=== PATIENT | female | born 1975 | race Two or more races ===

== ENCOUNTER 2022-06-18 17:56 | Inpatient (IN) | payer MEDICAID ==
[~2022-06-18] VITALS: Ht 165.1 cm; Wt 132.9 kg
[~2022-06-18 17:56] MED LIST: AMLO10TA PO; ASPI-1822 PO; AZIT250T4 PO; BACL10TA4 PO; BISA-28 PO; BRIM5SOL1 OP; CALC667T8 PO; CARV12.5 PO; DORZ10DR11 OP; FLUO0.0210 TP; FURO-570 PO; GABA300C PO; HUM SUBQ; INSU100S22 SC; LIP80 PO; QUET100T PO; VITA1TAB44 PO; VITA400T14 PO; XALOS OP
[2022-06-18 17:59] VITALS: BP 130/66
--- NOTE | 2022-06-18 18:04 | NUR ---
GENERALIZED WEAKNESS WITH ELECTRIC SHOCK LIKE SYMPTOMS BILATERAL ARMS, STATED THIS HAPPENS WHEN HER POTASSIUM IS LOW, GET HD M-W-F, SHUNT ON RIGHT UPPER CHEST, L BELOW AMPUTATION AND RIGHT AMPUTATION.
--- NOTE | 2022-06-18 18:17 | NUR ---
47 yo/f biba from home w c/o body shaking which pt reports occurs when her potassium levels are high and gets shocks to BL arms, +n/v x1 episode, has occured in the past. pt aox4, denies any pain at this time. dialysis shunt to L arm. pmh: dm, chf, renal failure MWF (Completed sunday), L bka, schizo allergies: denies
--- NOTE | 2022-06-18 19:21 | NUR ---
report to jose a ring
--- NOTE | 2022-06-18 19:52 | NUR ---
IV IS INSTRED 22 GAUGE RIGHT HAND
[2022-06-18 19:57] LABS: BASOPHILS # (AUTO) 0.1 K/uL (0.00-0.22); BASOPHILS % (AUTO) 0.9 % (0.0-2.0); EOSINOPHILS # (AUTO) 0.4 K/uL (0-0.4); EOSINOPHILS % (AUTO) 5.1 % (0.0-4.0); HEMATOCRIT 31.1 % (36-48); HEMOGLOBIN 10.2 g/dL (12.0-16.0); LYMPHOCYTES # (AUTO) 2.1 K/uL (2.5-16.5); LYMPHOCYTES % (AUTO) 25.3 % (20.5-51.1); MEAN CORPUSCULAR HEMOGLOBIN 31 pg (27-31); MEAN CORPUSCULAR HGB CONC 33 g/dL (33-37); MEAN CORPUSCULAR VOLUME 95.2 fL (80-94); MONOCYTES # (AUTO) 0.6 K/uL (0.8-1.0); MONOCYTES % (AUTO) 7.6 % (1.7-9.3); NEUTROPHILS % (AUTO) 61.1 % (42.2-75.2); PLATELET COUNT (AUTO) 278 K/uL (140-450); RED BLOOD CELL COUNT(AUTO) 3.27 MIL/uL (4.20-5.40); RED CELL DISTRIBUTION WIDTH 15.1 % (11.6-13.7); WHITE BLOOD COUNT (AUTO) 8.2 K/uL (4.8-10.8)
[2022-06-18 20:16] LABS: ALBUMIN 3.1 g/dL (3.4-5.0); ANION GAP 17.5 (8-16); POTASSIUM 5.5 mmol/L (3.5-5.1); TOTAL BILIRUBIN 0.3 mg/dL (0.0-1.0)
[2022-06-18 21:05] LABS: APPEARANCE,URINE CLEAR (CLEAR); BILIRUBIN,URINE NEGATIVE (NEGATIVE); BLOOD, URINE NEGATIVE (NEGATIVE); COLOR,URINE YELLOW (YELLOW); LEUKOCYTE ESTERASE ,URINE NEGATIVE (NEGATIVE); NITRITE, URINE NEGATIVE (NEGATIVE); PH,URINE 7.5 (5.0-9.0); UGLUCOSE 3+ (NEGATIVE)
--- NOTE | 2022-06-18 23:00 | NUR ---
pt is resting . no acute distress noted
--- NOTE | 2022-06-19 02:20 | NUR ---
pt asking for snack and nurse provided the item
[2022-06-19] MEDS ORDERED: INSULIN LISPRO SLIDING SCALE 100 UNITS/ML VIAL SUBQ PRN (02:25)
[2022-06-19] MEDS ORDERED: HYDR100T49 PO (02:29)
[2022-06-19] MEDS ORDERED: QUET400T PO (02:29)
[2022-06-19] MEDS ORDERED: DEXTROSE 50% 50 ML SYR IVP PRN ×2 (02:55→10:40)
--- NOTE | 2022-06-19 04:41 | NUR ---
Patient will be admitted to care of Florian. Admited to telemerty . Will go to room 113. Belongings list completed. Report to melania
--- NOTE | 2022-06-19 07:20 | NUR ---
RECEIVED REPORT FROM BRIQUETTE MACHINE OPERATOR NURSE FOR CONTINUITY OF CARE. PT STABLE AT THIS TIME.
[2022-06-19 08:00] VITALS: BP 158/75
--- NOTE | 2022-06-19 10:13 | NUR ---
PATIENT HAS BEEN SCREENED AND CATEGORIZED MODERATE NUTRITION RISK. PATIENT WILL BE SEEN WITHIN 3-5 DAYS OF ADMISSION. REVIEWED BY PARVEEN ROQUE RD
[2022-06-19] MEDS ORDERED: bisacodyL 5 MG TABEC PO PRN (10:40)
[2022-06-19] MEDS ORDERED: POTASSIUM CHLORIDE 10 MEQ TABER PO PRN (10:40)
[2022-06-19] MEDS ORDERED: MAG SULF 2000 MG/WATER PREMIX 50 ML IV PRN (10:40)
[2022-06-19] MEDS: INSULIN LANTUS 100 UNITS/ML 10 ML VIAL SUBQ SCH (10:58)
[2022-06-19] MEDS: BLOOD GLUCOSE MONITORING 1 DEV DEV FS SCH ×3 (11:30→21:03)
[2022-06-19 12:00] VITALS: BP 153/61
[2022-06-19] MEDS: CALCIUM ACETATE 667 MG TAB PO SCH ×2 (12:00→16:24)
[2022-06-19] MEDS ORDERED: SODIUM ZIRCONIUM CYCLOSILICATE 10 GM POWD.PACK PO SCH ×2 (12:08→15:30)
[2022-06-19 12:23] LABS: ANION GAP 19.4 (8-16); CARBON DIOXIDE 26.9 mmol/L (21-32); POTASSIUM 5.3 mmol/L (3.5-5.1)
[2022-06-19 12:32] LABS: CREATININE 9.6 mg/dL (0.6-1.3)
[2022-06-19] MEDS: INSULIN LISPRO SLIDING SCALE 100 UNITS/ML VIAL SUBQ PRN ×2 (12:51→21:04)
[2022-06-19] MEDS ORDERED: FLUOCINOLONE ACETONIDE 0.025% TP SCH (13:00)
[2022-06-19] MEDS ORDERED: NON-FORMULARY ITEM (Calcium Acetate 1 TAB) PO SCH (13:00)
[2022-06-19] MEDS: BACLOFEN 10 MG TAB PO SCH ×2 (13:03→16:24)
[2022-06-19 16:00] VITALS: BP 108/60
[2022-06-19] MEDS: FUROSEMIDE 40 MG TAB PO SCH (16:24)
--- NOTE | 2022-06-19 19:36 | NUR ---
ENDORSED PT TO UNIT OPERATOR NURSE FOR CONTINUITY OF CARE. PT STABLE AT THIS TIME.
--- NOTE | 2022-06-19 19:37 | NUR ---
RECEIVED REPORT FROM DAY SHIFT NURSE ALPHONSE FOR CONTINUITY OF CARE. PT SITTING IN BED, TALKING BY HERSELF. RESPIRATIONS EVEN AND UNLABORED ON RA. ON RESIDENT CARE DIRECTOR. DENIES PAIN. PT HAD HD TODAY, PER RN, 3L OUT. LEFT AV SHUNT, INTACT COVERED WITH DRESSING. DR PINEDA, CONSULTED FOR REMOVAL OF RIGHT CHEST TUNNELED CATH. POC DISCUSSED WITH PT AND RICARDO DONATO. CALL LIGHT WITHIN REACH. SAFETY PRECAUTIONS IN PLACE.
[2022-06-19 20:00] VITALS: BP 112/49
--- NOTE | 2022-06-19 20:00 | NUR ---
Patient's Plan of Care was discussed and reviewed with TITO GARDINER:
[2022-06-19] MEDS: carvediloL 12.5 MG TAB PO SCH (20:55)
[2022-06-19] MEDS: QUEtiapine FUMARATE 100 MG TAB PO SCH (20:55)
[2022-06-19] MEDS: LATANOPROST 0.005% OP 2.5 ML BTL OP SCH (21:00)
[2022-06-19] MEDS ORDERED: NON-FORMULARY ITEM (Dorzolamide HCl/Timolol Maleat (Dorzolamide-Timolol Eye Drops) 1 DROP) OP SCH (21:00)
[2022-06-19] MEDS ORDERED: LATANOPROST 0.005% OP 2.5 ML BTL OP SCH (21:00)
[2022-06-19] MEDS ORDERED: NON-FORMULARY ITEM (Brimonidine Tartrate* (Alphagan P 0.15% Opth Soln*) 1 DROP) OP SCH (21:00)
[2022-06-19] MEDS: BRIMONIDINE TARTRATE 0.2% OP 5 ML BTL OP SCH (21:01)
[2022-06-19] MEDS: DORZOLAMIDE 2% OP 10 ML BTL OP SCH (21:02)
[2022-06-19] MEDS: TIMOLOL OP 0.25% 5 ML BTL OP SCH (21:02)
--- NOTE | 2022-06-19 21:02 | NUR ---
ADMINISTERED DUE MEDS. PT TOLERATED WELL.
--- NOTE | 2022-06-19 22:04 | NUR ---
PT REQUESTED MED FOR CONSTIPATION. ADMINISTERED PRN MED.
[2022-06-20] VITALS: BP 119/55
[2022-06-20 04:00] VITALS: BP 115/68
--- NOTE | 2022-06-20 04:08 | NUR ---
V/S TAKEN AND WITHIN NORMAL LIMITS. PT SLEEPING WITH EQUAL CHEST RISE AND FALL. NO DISTRESS NOTED. SAFETY PRECAUTIONS IN PLACE.
[2022-06-20] MEDS: BLOOD GLUCOSE MONITORING 1 DEV DEV FS SCH ×4 (06:35→20:39)
--- NOTE | 2022-06-20 06:35 | NUR ---
BLOOD SUGAR CHECK DONE. NO INSULIN COVERAGE NEEDED.
--- NOTE | 2022-06-20 07:01 | NUR ---
GAVE BEDSIDE REPORT TO RICARDO CUNHA FOR CONTINUITY OF CARE. PT IS STABLE.
[2022-06-20 07:08] LABS: BASOPHILS % (AUTO) 0.5 % (0.0-2.0); EOSINOPHILS # (AUTO) 0.3 K/uL (0-0.4); EOSINOPHILS % (AUTO) 3.7 % (0.0-4.0); HEMATOCRIT 30.5 % (36-48); LYMPHOCYTES # (AUTO) 2.1 K/uL (2.5-16.5); LYMPHOCYTES % (AUTO) 22.9 % (20.5-51.1); MEAN CORPUSCULAR HEMOGLOBIN 31 pg (27-31); MEAN CORPUSCULAR HGB CONC 33 g/dL (33-37); MEAN CORPUSCULAR VOLUME 93.9 fL (80-94); MONOCYTES # (AUTO) 0.8 K/uL (0.8-1.0); MONOCYTES % (AUTO) 8.7 % (1.7-9.3); NEUTROPHILS # (AUTO) 5.9 K/uL (1.8-7.7); NEUTROPHILS % (AUTO) 64.2 % (42.2-75.2); PLATELET COUNT (AUTO) 253 K/uL (140-450); RED BLOOD CELL COUNT(AUTO) 3.25 MIL/uL (4.20-5.40); RED CELL DISTRIBUTION WIDTH 14.8 % (11.6-13.7); WHITE BLOOD COUNT (AUTO) 9.2 K/uL (4.8-10.8)
--- NOTE | 2022-06-20 07:20 | NUR ---
RECEIVED REPORT FROM MEDICAL BILLING REPRESENTATIVE NURSE FOR CONTINUITY OF CARE. PT STABLE AT THIS TIME.
[2022-06-20 07:30] LABS: ANION GAP 18.1 (8-16); CARBON DIOXIDE 27.4 mmol/L (21-32); POTASSIUM 4.5 mmol/L (3.5-5.1)
[2022-06-20 07:33] LABS: CREATININE 8.3 mg/dL (0.6-1.3)
[2022-06-20 08:00] VITALS: BP 169/80
[2022-06-20] MEDS: BACLOFEN 10 MG TAB PO SCH ×3 (08:36→17:00)
[2022-06-20] MEDS: QUEtiapine FUMARATE 100 MG TAB PO SCH ×3 (08:38→23:39)
[2022-06-20] MEDS: VITAMIN D 400 IU TAB PO SCH (08:38)
[2022-06-20] MEDS: GABAPENTIN 300 MG CAP PO SCH (08:38)
[2022-06-20] MEDS: ASPIRIN 81 MG TAB.CHEW PO SCH (08:38)
[2022-06-20] MEDS: amLODIPine 5 MG TAB PO SCH (08:39)
[2022-06-20] MEDS: CALCIUM ACETATE 667 MG TAB PO SCH ×3 (08:39→17:00)
[2022-06-20] MEDS: carvediloL 12.5 MG TAB PO SCH ×3 (08:39→23:39)
[2022-06-20] MEDS: ATORVASTATIN 80 MG TAB PO SCH (08:39)
[2022-06-20] MEDS: FUROSEMIDE 40 MG TAB PO SCH ×2 (08:39→17:00)
[2022-06-20] MEDS: VIT-B COMP/VIT-C/FOLIC ACID 1 TAB PO SCH (08:40)
--- NOTE | 2022-06-20 08:45 | NUR ---
PT ASLEEP BUT WOKE WITH A STERNAL RUB AND CONSTANT SHAKING. MORNING MEDICATION ADMINISTERED. PT SEEMS TO BE VERY DROWSY. WILL WATCH FOR ANY CHANGES.
[2022-06-20] MEDS: INSULIN LANTUS 100 UNITS/ML 10 ML VIAL SUBQ SCH (08:58)
[2022-06-20] MEDS ORDERED: INSULIN GLARGINE HUM REC ANLOG U SCH (09:00)
[2022-06-20] MEDS: BRIMONIDINE TARTRATE 0.2% OP 5 ML BTL OP SCH ×2 (09:00→20:45)
[2022-06-20] MEDS: TIMOLOL OP 0.25% 5 ML BTL OP SCH ×2 (09:00→20:34)
[2022-06-20] MEDS: DORZOLAMIDE 2% OP 10 ML BTL OP SCH ×2 (09:00→20:42)
--- NOTE | 2022-06-20 09:40 | NUR ---
RECEIVED A CALL FROM DR. PINEDA REGARDING SUPPLIES HE WOULD NEED TO REMOVE THE PATIENTS TUNNELED CATHETER THIS AFTERNOON. WROTE DOWN THE SUPPLIES, COLLECTED THEM AND PLACED THEM AT BEDSIDE. I ALSO ORDERED THE MEDICATION THAT WOULD BE NEEDED FOR THE PROCEDURE.
[2022-06-20] MEDS ORDERED: LIDOCAINE 1% 500 MG/ 50 ML VIAL INJ SCH (11:20)
--- NOTE | 2022-06-20 11:35 | NUR ---
JOHNY PLANNING ATTEMPTED TO MEET PT AT BEDSIDE, HOWEVER, PT UNABLE TO STAY AWAKE LONG ENOUGH TO COMPLETE ASSESSMENT. SW TO RETURN WHEN PT IS ALERT AND ORIENTED. SW TO FOLLOW Addendum: 06/21/22 at 1517 by Hiren Person SECOND ATTEMPT MADE TO MEET PT AT BED SIDE TO COMPLETE ASSESSMENT, HOWEVER, PT RECEIVING DIALYSIS AND HEAVILY SLEEPING, UNABLE TO WAKE. OUTREACHED TO PTS EMERGENCY CONTACT [employer], TO GATHER COLLAT INFO HOWEVER, NO ANSWER. SW TO CONTINUE FOLLOWING Addendum: 06/22/22 at 1341 by Hiren Person third attempt: attempted to meet pt at bedside to complete assessment, however pt continues to respond to prompts. pat outreached top pts mother, ascencion. ascencion reports she will be at hospital later this afternoon.
[2022-06-20 12:00] VITALS: BP 137/66
--- NOTE | 2022-06-20 12:00 | NUR ---
WENT IN TO GIVE PATIENT HER NOON MEDICATION AN PT WAS ASLEEP. I WAS ABLE TO WAKE THE PATIENT AFTER A FEW MINUTES OF SAYING HER NAME AND CONSTANT SHAKING. PT TOOK HER MEDICATION AND I TOLD HER HE FOOD WAS THERE.
[2022-06-20] MEDS ORDERED: MORPHINE SULFATE 4 MG/ML SYR IVP SCH (15:10)
--- NOTE | 2022-06-20 15:10 | NUR ---
RECEIVED A CALL FROM DR PINEDA ASKING ABOUT SUPPLIES FOR TUNNELED CATHETER REMOVAL AND VERBALLY ORDERED 4MG MORPHINE TO BE ADMINISTERED NOW. PLACED ORDER AND ADMINISTERED MEDICATION TO THE PATIENT.
--- NOTE | 2022-06-20 15:30 | NUR ---
DR PINEDA ARRIVED TO REMOVE PTS TUNNELED CATHETER. ALL SUPPLIES WERE AT BEDSIDE AND PROCEDURE WENT SMOOTHLY. CATHETER REMOVED.
[2022-06-20 16:00] VITALS: BP 117/62
--- NOTE | 2022-06-20 17:15 | NUR ---
WENT TO ADMINISTER PTS 1700 MEDS AND PT WOULD BARELY WAKE UP. AFTER SHAKING, STERNAL RUBBING HER AND SAYING HER NAME FOR A FEW MINUTES I DECIDED SHE WAS TOO DROWSY TO TAKE MEDICATION SAFELY. CHARTED MEDICATION WAS NOT GIVEN AND WILL ENDORSE TO BOILER ENGINEER PTS DROWSINESS.
--- NOTE | 2022-06-20 19:45 | NUR ---
ENDORSED PT TO LOAD TEST MECHANIC NURSE FOR CONTINUITY OF CARE. PT STABLE AT THIS TIME.
--- NOTE | 2022-06-20 19:46 | NUR ---
RECEIVED REPORT FROM DAY SHIFT NURSE ALPHONSE FOR CONTINUITY OF CARE. PT LETHARGIC, TOO DROWSY. AROUSABLE BY TOUCH, SHAKING AND VERBAL STIMULI. RESPIRATIONS EVEN AND UNLABORED ON RA. POC DISCUSSED. GAVE REPORT TO RICARDO DONATO. CALL LIGHT WITHIN REACH. SAFETY PRECAUTIONS IN PLACE. Addendum: 06/20/22 at 2330 by Jason Fischer LVN PT ON 2 L NC SATTING AT 99%. Addendum: 06/21/22 at 0031 by Jason Fischer LVN NOTED RIGHT CHEST COVERED WITH DRESSING, DRY AND INTACT. S/P REMOVAL OF RIGHT CHEST HD PERMACATH.
[2022-06-20 20:00] VITALS: BP 111/68
--- NOTE | 2022-06-20 20:00 | NUR ---
Patient's Plan of Care was discussed and reviewed with TITO GARDINER:
--- NOTE | 2022-06-20 20:10 | NUR ---
V/S TAKEN, WITHIN NORMAL LIMITS. BLOOD SUGAR 98. PT'S MOTHER ERIKA AT BEDSIDE.
[2022-06-20] MEDS: LATANOPROST 0.005% OP 2.5 ML BTL OP SCH (20:38)
--- NOTE | 2022-06-20 21:50 | NUR ---
ADMINISTERED DUE MED. NON-ADMIT PO MED. PT TOO LETHARGIC, DROWSY, AROUSABLE BY TOUCH AND VERBAL STIMULI. V/S WITHIN NORMAL LIMITS. PT CLOSELY MONITORED.
--- NOTE | 2022-06-20 23:20 | NUR ---
PT MORE AWAKE. BOTH EYES OPENED. ABLE TO SPEAK. EAT FEW BITES OF DINNER. ABLE TO SWALLOW AND DRINK WELL. REPOSITIONED PT. PT COMFORTABLE IN BED WITH SAFETY PRECAUTIONS IN PLACE.
--- NOTE | 2022-06-20 23:48 | NUR ---
PT WAS SCREAMING STATED "THEY ARE HERE. THEY ARE HERE TO KILL ME." V/S ELEVATED 143/62 HR 71. ADMINISTERED SCHEDULED MEDS. PT ABLE TO SWALLOW MEDS.
[2022-06-21 04:00] VITALS: BP 114/81
--- NOTE | 2022-06-21 04:09 | NUR ---
PT SLEEPING. WITH VISIBLE CHEST RISE AND FALL. V/S WAS TAKEN, WITHIN NORMAL LIMITS. SAFETY PRECAUTIONS IN PLACE.
[2022-06-21 06:41] LABS: BASOPHILS % (AUTO) 0.2 % (0.0-2.0); EOSINOPHILS # (AUTO) 0.2 K/uL (0-0.4); EOSINOPHILS % (AUTO) 1.4 % (0.0-4.0); HEMATOCRIT 31.4 % (36-48); HEMOGLOBIN 10.3 g/dL (12.0-16.0); LYMPHOCYTES # (AUTO) 1.2 K/uL (2.5-16.5); LYMPHOCYTES % (AUTO) 10.4 % (20.5-51.1); MEAN CORPUSCULAR HEMOGLOBIN 31 pg (27-31); MEAN CORPUSCULAR HGB CONC 33 g/dL (33-37); MEAN CORPUSCULAR VOLUME 93.6 fL (80-94); MONOCYTES # (AUTO) 0.8 K/uL (0.8-1.0); MONOCYTES % (AUTO) 6.6 % (1.7-9.3); NEUTROPHILS # (AUTO) 9.7 K/uL (1.8-7.7); NEUTROPHILS % (AUTO) 81.4 % (42.2-75.2); PLATELET COUNT (AUTO) 254 K/uL (140-450); RED BLOOD CELL COUNT(AUTO) 3.35 MIL/uL (4.20-5.40); WHITE BLOOD COUNT (AUTO) 11.9 K/uL (4.8-10.8)
[2022-06-21 06:58] LABS: PHOSPHORUS 7.8 mg/dL (2.5-4.9)
[2022-06-21] MEDS: BLOOD GLUCOSE MONITORING 1 DEV DEV FS SCH ×4 (07:32→21:15)
--- NOTE | 2022-06-21 07:32 | NUR ---
GAVE BEDSIDE REPORT TO ABDIFATAH PHILLIPS FOR CONTINUITY OF CARE. PT IS STABLE.
--- NOTE | 2022-06-21 07:33 | NUR ---
RECEIVED REPORT FROM CHAR FILTER OPERATOR NURSE, SEAN, FOR CONTINUITY OF CARE. PT IN BED SLEEPING AT THIS TIME. RESPIRATIONS ARE EVEN AND UNLABORED, PT IS ON 2LO2 VIA NC. NO SIGNS OF DISTRESS NOTED. AT BASELINE PT IS ALERT AND ORIETNED X4, AT THIS TIME PT APPEARS VERY LETHARGIC, DIFFICULT TO AROUSE. PER CHAR FILTER OPERATOR NURSE, PT HAD PROCEDURE DONE YESTERDAY AND RECEIVED PM QUANEPINE, AND HAS BEEN VERY TIRED. ABD IS NONTENDER, NONDISTENDED WITH BOWEL SOUNDS PRESENT. PT HAS HAD ALL TOES AMPUTATED FROM R FOOT, AND HAS HAD L BKA. PT HAS TOBY AV SHUNT FOR HD. PT IS SCHEDULED FOR DIALYSIS TODAY. CALL LIGHT WITHIN REACH. ALL SAFETY MEASURES IN PLACE.
[2022-06-21] MEDS: CALCIUM ACETATE 667 MG TAB PO SCH ×3 (08:00→17:00)
--- NOTE | 2022-06-21 08:00 | NUR ---
Patient's Plan of Care was discussed and reviewed with BREAKFAST HOSTESS: ALAN
[2022-06-21 08:05] LABS: CARBON DIOXIDE 24.3 mmol/L (21-32); POTASSIUM 5.3 mmol/L (3.5-5.1)
[2022-06-21 08:07] LABS: CREATININE 9.5 mg/dL (0.6-1.3)
[2022-06-21] MEDS: VIT-B COMP/VIT-C/FOLIC ACID 1 TAB PO SCH (09:00)
[2022-06-21] MEDS: INSULIN LANTUS 100 UNITS/ML 10 ML VIAL SUBQ SCH (09:00)
[2022-06-21] MEDS: VITAMIN D 400 IU TAB PO SCH (09:00)
[2022-06-21] MEDS: QUEtiapine FUMARATE 100 MG TAB PO SCH ×2 (09:00→21:00)
[2022-06-21] MEDS: ASPIRIN 81 MG TAB.CHEW PO SCH (09:00)
[2022-06-21] MEDS: BACLOFEN 10 MG TAB PO SCH ×3 (09:00→17:00)
[2022-06-21] MEDS: GABAPENTIN 300 MG CAP PO SCH (09:00)
[2022-06-21] MEDS: amLODIPine 5 MG TAB PO SCH (09:00)
[2022-06-21] MEDS: ATORVASTATIN 80 MG TAB PO SCH (09:00)
[2022-06-21] MEDS: carvediloL 12.5 MG TAB PO SCH ×2 (09:00→22:47)
[2022-06-21] MEDS: FUROSEMIDE 40 MG TAB PO SCH ×2 (09:00→17:00)
[2022-06-21] MEDS: DORZOLAMIDE 2% OP 10 ML BTL OP SCH ×2 (09:42→21:15)
[2022-06-21] MEDS: TIMOLOL OP 0.25% 5 ML BTL OP SCH ×2 (09:43→21:15)
[2022-06-21] MEDS: BRIMONIDINE TARTRATE 0.2% OP 5 ML BTL OP SCH ×2 (09:44→21:00)
--- NOTE | 2022-06-21 10:12 | NUR ---
AM MEDICATIONS NOT ADMINISTERED, PT VERY LETHARGIC, UNABLE TO TAKE PO MEDS. LANTIS HELD, BLOOD GLUCOSE IS 95. BLOOD PRESSURE 131/65, 02 98% ON 2L 02 VIA NC.
--- NOTE | 2022-06-21 10:49 | NUR ---
ABG RESULTS GIVEN TO , PHYSICIAN REQUESTS PT TO BE PLACED ON BIPAP FOR NOC USE. NO OTHER NEW ORDERS AT THIS TIME.
--- NOTE | 2022-06-21 10:50 | NUR ---
ABG DONE ON 2L NC - MD INFORMED OF RESULTS - RT SUGGESTED CT SCAN MAY BE HELPFUL
--- NOTE | 2022-06-21 11:18 | NUR ---
DIALYSIS NURSE HERE, DIALYSIS STARTED.
--- NOTE | 2022-06-21 12:24 | NUR ---
PT. WITH LOW DANGELO SCALE AT MODERATE TO HIGH RISK, CONTINUE TO FOLLOW PRESSURE INJURY PREVENTION INTERVENTIONS. -POSITIONING: TURN AND REPOSITION PATIENT Q 2H OR SOONER USE PILLOWS TO KEEP BONY PROMINENCES FROM DIRECT CONTACT WITH SURFACES USE REPOSITIONING WEDGES TO PROVIDE 30-DEGREE ANGLE FOR SIDE LYING POSITIONS OFFLOADING OR FOAM DRESSING TO ALL TUBING TO PREVENT MEDICAL DEVICES RELATED PRESSURE INJURY -RE-EVALUATING AND MANAGING INCONTINENCE MONITOR SKIN CONDITION DURING POSITION CHANGE DO NOT MASSAGE REDNESS, BONY PROMINENCES FREQUENT OSCAR-CARE AND PROVIDE BARRIER CREAMS PRN IF SOILING MOISTURE CONTROL BY OFFER BED EDMONDSON/URINAL /ABSORBENT PAD TO WICK AND HOLD MOISTURE KEEP SKIN DRY AND PROTECT FROM FRICTION -MANAGE FRICTION/SHEAR/MOBILITY KEEP HOB AT THE LOWEST LEVEL OF ELEVATION NO MORE THAN 30 DEGREE UNLESS OTHERWISE CONTRAINDICATED USE LIFT SHEET OR TRANSFER DEVICE TO MOVE PATIENT AND PREVENT LATERAL SHEER. PROTECT HEELS, ELBOWS BONY PROMINENCES WITH SKIN BERRIES OR FOAM DRESSING IF EXPOSED TO FRICTION OFFLOAD BILATERAL HEELS BY PLACING PILLOWS UNDER CALVES AT ALL TIMES, UNLESS OTHERWISE CONTRAINDICATED -PRESSURE REDISTRIBUTION SURFACE THERAPY DORY ISOFLEX MATTRESS -NUTRITION: PLEASE FOLLOW RD RECOMMENDATIONS AND OFFER NUTRITION SUPPLEMENTS IF ORDERED. PLEASE CONTACT WOUND CARE NURSE FOR ANY QUESTION AND CHANGE OF WOUND CONDITION.
--- NOTE | 2022-06-21 12:49 | NUR ---
PHOS LO NOT ADMINISTERED. PT ON DIALYSIS, AND IS STILL VERY LETHARGIC. BLOOD GLUCOSE 78, BP 103/69, O2 96%.
[2022-06-21] MEDS: PIPERACILLIN/TAZOBACTAM 2.25 GM in DEXTROSE 5% 50 ML IV SCH ×2 (13:00→21:15)
--- NOTE | 2022-06-21 14:27 | NUR ---
DIALYSIS COMPLETE. 2L OUT. PT TOLERATED WELL.
--- NOTE | 2022-06-21 14:30 | NUR ---
ATTEMPTED TO GIVE PO BACLOFEN, UNABLE TO DO SO, PT CONTINUES TO FALL BACK ASLEEP.
[2022-06-21 16:00] VITALS: BP 124/75
--- NOTE | 2022-06-21 16:23 | NUR ---
WENT TO DO ROUND ON PT. PT WAKES SPORADICALLY, AND BEGINS TO SCREAM. RE-ORIENTED PT.
--- NOTE | 2022-06-21 18:21 | NUR ---
PT PULLED OUT IV AND ATTEMPTED TO PULL AT DIALYSIS SITE. NEW IV ACCESS ESTABLISHED, RFA 24G.
--- NOTE | 2022-06-21 19:22 | NUR ---
ENDORSED PT TO VALIDATION TECHNICIAN NURSE, DARIEL, FOR CONTINUITY OF CARE. PT IS STABLE.
[2022-06-21 20:00] VITALS: BP 139/78
[2022-06-21] MEDS: LATANOPROST 0.005% OP 2.5 ML BTL OP SCH (21:15)
--- NOTE | 2022-06-21 21:22 | NUR ---
PT WAS TAKEN TO RADIOLOGY FOR HEAD CT SCAN. PT IS AWAKE, ALERT X 2. PT NOTED CONFUSED.
--- NOTE | 2022-06-21 22:10 | NUR ---
PT ALREADY BACK INTO THE ROOM FROM RADIOLOGY FOR HEAD CT SCAN, NOTED PT TALK TO HERSELF. PT DOES NOT REPLY UPON QUESTION.
--- NOTE | 2022-06-22 04:30 | NUR ---
PERSONAL HYGIENE IS RENDERED. NO BM.
[2022-06-22] MEDS: PIPERACILLIN/TAZOBACTAM 2.25 GM in DEXTROSE 5% 50 ML IV SCH ×3 (05:00→21:25)
--- NOTE | 2022-06-22 05:07 | NUR ---
PT IS ASLEEP. NO SOB OR DISTRESS. NO FACIAL GRIMACING.
[2022-06-22] MEDS: BLOOD GLUCOSE MONITORING 1 DEV DEV FS SCH ×4 (06:52→21:00)
--- NOTE | 2022-06-22 06:52 | NUR ---
BLOOD SUGAR CHECKED = 98
[2022-06-22 07:05] LABS: BASOPHILS % (AUTO) 0.3 % (0.0-2.0); EOSINOPHILS # (AUTO) 0.2 K/uL (0-0.4); EOSINOPHILS % (AUTO) 1.8 % (0.0-4.0); HEMATOCRIT 29.7 % (36-48); HEMOGLOBIN 9.8 g/dL (12.0-16.0); LYMPHOCYTES # (AUTO) 1.9 K/uL (2.5-16.5); LYMPHOCYTES % (AUTO) 19.9 % (20.5-51.1); MEAN CORPUSCULAR HEMOGLOBIN 31 pg (27-31); MEAN CORPUSCULAR HGB CONC 33 g/dL (33-37); MEAN CORPUSCULAR VOLUME 93.8 fL (80-94); MONOCYTES # (AUTO) 0.9 K/uL (0.8-1.0); MONOCYTES % (AUTO) 9.1 % (1.7-9.3); NEUTROPHILS # (AUTO) 6.5 K/uL (1.8-7.7); NEUTROPHILS % (AUTO) 68.9 % (42.2-75.2); PLATELET COUNT (AUTO) 231 K/uL (140-450); RED BLOOD CELL COUNT(AUTO) 3.17 MIL/uL (4.20-5.40); RED CELL DISTRIBUTION WIDTH 15.1 % (11.6-13.7); WHITE BLOOD COUNT (AUTO) 9.4 K/uL (4.8-10.8)
[2022-06-22 08:00] VITALS: BP 116/62
[2022-06-22] MEDS: CALCIUM ACETATE 667 MG TAB PO SCH ×3 (08:00→17:00)
[2022-06-22 08:44] LABS: MAGNESIUM 2.3 mg/dL (1.8-2.4); PHOSPHORUS 8.2 mg/dL (2.5-4.9)
[2022-06-22 08:45] LABS: ANION GAP 18.7 (8-16); CARBON DIOXIDE 26.8 mmol/L (21-32); POTASSIUM 4.5 mmol/L (3.5-5.1)
[2022-06-22] MEDS: INSULIN LANTUS 100 UNITS/ML 10 ML VIAL SUBQ SCH (09:00)
[2022-06-22 09:08] LABS: CREATININE 8.5 mg/dL (0.6-1.3)
[2022-06-22] MEDS: BRIMONIDINE TARTRATE 0.2% OP 5 ML BTL OP SCH ×2 (09:23→21:00)
[2022-06-22] MEDS: TIMOLOL OP 0.25% 5 ML BTL OP SCH ×2 (09:24→21:00)
[2022-06-22] MEDS: ASPIRIN 81 MG TAB.CHEW PO SCH (09:25)
[2022-06-22] MEDS: DORZOLAMIDE 2% OP 10 ML BTL OP SCH ×2 (09:25→21:00)
[2022-06-22] MEDS: carvediloL 12.5 MG TAB PO SCH ×2 (09:26→21:00)
[2022-06-22] MEDS: VITAMIN D 400 IU TAB PO SCH (09:26)
[2022-06-22] MEDS: FUROSEMIDE 40 MG TAB PO SCH ×2 (09:27→17:00)
[2022-06-22] MEDS: BACLOFEN 10 MG TAB PO SCH (09:28)
[2022-06-22] MEDS: ATORVASTATIN 80 MG TAB PO SCH (09:29)
[2022-06-22] MEDS: VIT-B COMP/VIT-C/FOLIC ACID 1 TAB PO SCH (09:30)
[2022-06-22] MEDS: GABAPENTIN 300 MG CAP PO SCH (09:30)
[2022-06-22] MEDS: QUEtiapine FUMARATE 100 MG TAB PO SCH (09:31)
[2022-06-22] MEDS: amLODIPine 5 MG TAB PO SCH (09:31)
--- NOTE | 2022-06-22 14:48 | NUR ---
06/22/22 RD INITIAL ASSESSMENT COMPLETED PLEASE REFER TO NUTRITION ASSESSMENT UNDER CARE ACTIVITY FOR ESTIMATED NUTRITIONAL NEEDS. 1. RECOMMEND ADDING RENAL TO [id number] DIET TOLERATED 2. PROVIDED NUTRITION EDUCATION FOR DM, CHF, RENAL DIET 3. RD TO FOLLOW-UP 7 DAYS, LOW RISK REVIEWED BY PARVEEN ROQUE RD
[2022-06-22 16:00] VITALS: BP 140/62
--- NOTE | 2022-06-22 19:30 | NUR ---
RECEIVED REPORT FROM DAY SHIFT NURSE ANA MARIA FOR CONTINUITY OF CARE. PATIENT IS A&O X1. PATIENT IS ON NC 1L, BREATHING IS NORMAL WITH SYMMETRICAL RISE AND FALL OF CHEST. IV IS A 22G RAC AND 24G RAC, RUNNING 5ML TKO ON 24G. PATIENT IS LYING SEMI-FOWLERS POSITION WITH EYES OPEN STARRING AT CEILING. PATIENT DOES NOT ANSWER QUESTIONS AND AT TIMES FLAPS HER ARMS UP AND DOWN. BED IS IN LOWEST POSITION, WHEELS LOCKED CALL LIGHT IN PLACE. WILL CONTINUE TO OBSERVE PATIENT.
[2022-06-22 20:00] VITALS: BP 108/41
[2022-06-22] MEDS: LATANOPROST 0.005% OP 2.5 ML BTL OP SCH (21:00)
--- NOTE | 2022-06-22 21:42 | NUR ---
0800: RECEIVED PT FROM DARIEL SILVA. NO GUARDING OR GRIMACING. NO ACUTE DISTRESS NOTED AT THIS TIME. [id number].
--- NOTE | 2022-06-22 21:44 | NUR ---
193: REPORT OFF TO TASIA SILVA. PT RESTING IN BED. NO GUARDING OR GRIMACING. NO ACUTE DISTRESS NOTED AT THIS TIME. [id number].
[2022-06-23 04:00] VITALS: BP 97/49
--- NOTE | 2022-06-23 04:00 | NUR ---
PATIENT WAS GIVEN 2100 MEDICATIONS LAST NIGHT. PATIENT DID NOT HAVE COREG DUE TO DECREASED DIASTOLIC BP (108/41). PATIENT WAS STILL STARRING AT CEILING DURING ADMINISTRATION; HOWEVER, WHEN I ATTEMPTED TO ADMINISTER EYE DROPS I SAID TO PATIENT THAT I WAS NOW GOING TO ADMINISTER THE EYE DROPS, AND THE PATIENT THEN TURNED THEIR HEAD TO THE SIDE (LOOKING AT ME) AND STATED "NO, I DON'T WANT EYE DROPS". I CLARIFIED WITH PATIENT SHE DIDN'T WANT EYE DROPS, AND SHE AGAIN STATED "NO"; THEN ONCE AGAIN TURNED HER HEAD TO FACE THE CEILING. EYE DROPS WERE NOT ADMINISTERED PER PATIENT REQUEST. PATIENT'S BS WAS 82; TOLD PATIENT SHE NEEDED TO DRINK OJ. PATIENT DID NOT RESPOND. HELD CUP UP TO PATIENT WITH STRAW AND SAID YOU NEED TO DRINK THIS BECAUSE YOUR BS IS LOW, WE CAN GO SLOWLY. PATIENT TURNED HER HEAD AGAIN LOOKING AT ME AND PUT HER MOUTH OVER THE STRAW. SHE DRANK THE ENTIRE CUP ONE SIP AT A TIME (TAKING ABOUT 4-5 MINUTES). PATIENT WAS CHANGED AROUND 0430. PATIENT HAD NOT VOIDED BUT DID HAVE A BM. PATIENT ALSO HAD A BM DURING THE CHANGING. PATIENT HAD TO CLOSED BLISTERS ON BUTTOCKS, FOAM BANDAGES WERE APPLIED. PATIENT DID NOT HELP WITH ROTATION; CHANGING WAS ASSISTED BY ABDIFATAH DOZIER. WILL CONTINUE TO OBSERVE PATIENT.
[2022-06-23] MEDS: PIPERACILLIN/TAZOBACTAM 2.25 GM in DEXTROSE 5% 50 ML IV SCH ×3 (04:44→22:11)
[2022-06-23] MEDS: BLOOD GLUCOSE MONITORING 1 DEV DEV FS SCH ×4 (06:53→21:00)
[2022-06-23 07:35] LABS: BASOPHILS # (AUTO) 0.1 K/uL (0.00-0.22); BASOPHILS % (AUTO) 0.6 % (0.0-2.0); EOSINOPHILS # (AUTO) 0.3 K/uL (0-0.4); EOSINOPHILS % (AUTO) 3.3 % (0.0-4.0); HEMOGLOBIN 10.5 g/dL (12.0-16.0); LYMPHOCYTES # (AUTO) 1.3 K/uL (2.5-16.5); LYMPHOCYTES % (AUTO) 13.4 % (20.5-51.1); MEAN CORPUSCULAR HEMOGLOBIN 31 pg (27-31); MEAN CORPUSCULAR HGB CONC 33 g/dL (33-37); MEAN CORPUSCULAR VOLUME 93.9 fL (80-94); MONOCYTES # (AUTO) 0.7 K/uL (0.8-1.0); MONOCYTES % (AUTO) 7.4 % (1.7-9.3); NEUTROPHILS # (AUTO) 7.3 K/uL (1.8-7.7); NEUTROPHILS % (AUTO) 75.3 % (42.2-75.2); PLATELET COUNT (AUTO) 253 K/uL (140-450); RED BLOOD CELL COUNT(AUTO) 3.41 MIL/uL (4.20-5.40); RED CELL DISTRIBUTION WIDTH 14.8 % (11.6-13.7); WHITE BLOOD COUNT (AUTO) 9.7 K/uL (4.8-10.8)
--- NOTE | 2022-06-23 07:45 | NUR ---
ENDORSED TO DAY SHIFT NURSE BRITTNEE FOR CONTINUITY OF CARE. PATIENT IS STABLE.
[2022-06-23 08:00] VITALS: BP 128/29
[2022-06-23 08:00] LABS: ANION GAP 23.9 (8-16); CARBON DIOXIDE 22.8 mmol/L (21-32); POTASSIUM 4.7 mmol/L (3.5-5.1)
[2022-06-23] MEDS: CALCIUM ACETATE 667 MG TAB PO SCH ×3 (08:00→17:09)
--- NOTE | 2022-06-23 08:00 | NUR ---
NURSE REPORT REPORT OBTAINED FROM NIGHT NURSE TASIA Marquez AND THIS NURSE ASSUMED CARE OF PATIENT. VSS. AFEB. NO C/O PAIN OR DISCOMFORT. BRITTNEE DELGADO RN
[2022-06-23 08:10] LABS: CREATININE 10.3 mg/dL (0.6-1.3)
[2022-06-23] MEDS: INSULIN LANTUS 100 UNITS/ML 10 ML VIAL SUBQ SCH (09:00)
[2022-06-23 09:18] LABS: MAGNESIUM 2.2 mg/dL (1.8-2.4)
[2022-06-23 09:21] LABS: PHOSPHORUS 10.1 mg/dL (2.5-4.9)
--- NOTE | 2022-06-23 10:00 | NUR ---
NURSE NOTES WAS TOLD THAT PATIENT WILL REFUSED MEDS. BUT THIS AM, SHE ALLOWED THE MATERIAL CHASER AND NURSE TO TAKE CARE OF HER. JUST THAT AM MEDS NOT ALL GIVEN SINCE RECEIVING HD AND HD NURSE STATED TO GIVE MEDS LATER. EYE DROPS GIVEN WITHOUT ANY PROBLEMS. NIGHT NURSE STATED SHE WOULD BE CATATONIC AND THE NURSE TOLD HER THAT SHE NEED TO TAKE HER MEDS AND EYE DROPS TO BE GIVEN, THEN SHE ROLL HER EYES OR SAY "I DON'T WANT THE EYE DROPS!" THEN GO BACK TO BEING CATATONIC. BRITTNEE DELGADO RN
[2022-06-23] MEDS: DORZOLAMIDE 2% OP 10 ML BTL OP SCH ×2 (10:07→22:19)
[2022-06-23] MEDS: TIMOLOL OP 0.25% 5 ML BTL OP SCH ×2 (10:07→22:19)
[2022-06-23] MEDS: BRIMONIDINE TARTRATE 0.2% OP 5 ML BTL OP SCH ×2 (10:07→22:19)
--- NOTE | 2022-06-23 12:00 | NUR ---
NURSE NOTES BG BEFORE LUNCH 159. PATIENT NOT EATING ALL HER FOOD. HD IN PROGRESS.
[2022-06-23] MEDS: VIT-B COMP/VIT-C/FOLIC ACID 1 TAB PO SCH (13:58)
[2022-06-23] MEDS: FUROSEMIDE 40 MG TAB PO SCH ×2 (13:59→17:09)
[2022-06-23] MEDS: ASPIRIN 81 MG TAB.CHEW PO SCH (13:59)
[2022-06-23] MEDS: carvediloL 12.5 MG TAB PO SCH ×2 (14:00→21:00)
[2022-06-23] MEDS: VITAMIN D 400 IU TAB PO SCH (14:01)
[2022-06-23] MEDS: ATORVASTATIN 80 MG TAB PO SCH (14:02)
[2022-06-23] MEDS: amLODIPine 5 MG TAB PO SCH (14:06)
--- NOTE | 2022-06-23 14:41 | NUR ---
DC PLANNING LATE ENTRY, COLLAT INFO GATHERED 06/22 ASSESSMENT COMPLETE PLEASE REFER TO ASSESSMENT FOR ADDITIONAL DETAILS PT MOTHER MARY REPORTS DC PLAN IS TO RETURN HOME WHEN MEDICALLY STABLE. MOTHER REPORTS PT MAY REQUIRE TRANSPORTATION ARRANGED WITH ACCESS [phone] OR GET ABOUT TRANSPORTATION [phone]. Addendum: 06/23/22 at 1443 by Hiren SIDHU Amended: Links added.
[2022-06-23 16:00] VITALS: BP 114/32
[2022-06-23] MEDS: INSULIN LISPRO SLIDING SCALE 100 UNITS/ML VIAL SUBQ PRN ×2 (17:11→22:14)
--- NOTE | 2022-06-23 17:14 | NUR ---
NURSE NOTES BG BEFORE DINNER 159- GIVEN 2 UNITS OF HUMALOG
--- NOTE | 2022-06-23 19:31 | NUR ---
NURSE REPORT REPORT GIVEN TO NIGHT NURSE KIMBERLY TO ASSUME CARE OF PATIENT. ALL QUESTIONS ANSWERED. BRITTNEE DELGADO RN
--- NOTE | 2022-06-23 19:32 | NUR ---
RECEIVED REPORT FROM DAY SHIFT RN FOR CONTINUITY OF CARE. PT IS RESTING IN BED NOT IN ANY DISTRESS. BED AT THE LOWEST POSITION. HEAD OF THE BED RAISED. POC DISCUSSED. WILL CONTINUE TO MONITOR THE PT.
[2022-06-23] MEDS: ALUMINUM HYDROXIDE 64 MG/ML BOTTLE PO SCH (22:19)
[2022-06-23] MEDS: LATANOPROST 0.005% OP 2.5 ML BTL OP SCH (22:19)
[2022-06-24] VITALS: BP 141/55
--- NOTE | 2022-06-24 00:15 | NUR ---
PT WAS CLEANED AND CHANGED. HAD BM. NOTICED SKIN TEAR ON RIGHT POSTERIOR UPPER EXTREMITY. CLOSE TO THE BUTTOX. CLEANED WOUND AND APPLIED DRESSING.
[2022-06-24] MEDS: PIPERACILLIN/TAZOBACTAM 2.25 GM in DEXTROSE 5% 50 ML IV SCH ×3 (04:38→20:34)
[2022-06-24] MEDS: ALUMINUM HYDROXIDE 64 MG/ML BOTTLE PO SCH ×2 (05:22→13:00)
[2022-06-24] MEDS: BLOOD GLUCOSE MONITORING 1 DEV DEV FS SCH ×4 (06:51→20:35)
[2022-06-24] MEDS: INSULIN LISPRO SLIDING SCALE 100 UNITS/ML VIAL SUBQ PRN ×2 (06:51→19:05)
--- NOTE | 2022-06-24 07:15 | NUR ---
ENDORSED PT TO DAY SHIFT RN FOR CONTINUITY OF CARE. PT IS STABLE.
[2022-06-24 07:16] LABS: BASOPHILS % (AUTO) 0.3 % (0.0-2.0); EOSINOPHILS % (AUTO) 0.4 % (0.0-4.0); HEMATOCRIT 30.7 % (36-48); HEMOGLOBIN 10.1 g/dL (12.0-16.0); LYMPHOCYTES # (AUTO) 1.5 K/uL (2.5-16.5); MEAN CORPUSCULAR HEMOGLOBIN 30 pg (27-31); MEAN CORPUSCULAR HGB CONC 33 g/dL (33-37); MEAN CORPUSCULAR VOLUME 92.2 fL (80-94); MONOCYTES # (AUTO) 0.9 K/uL (0.8-1.0); MONOCYTES % (AUTO) 8.6 % (1.7-9.3); NEUTROPHILS # (AUTO) 7.7 K/uL (1.8-7.7); NEUTROPHILS % (AUTO) 75.7 % (42.2-75.2); PLATELET COUNT (AUTO) 278 K/uL (140-450); RED BLOOD CELL COUNT(AUTO) 3.33 MIL/uL (4.20-5.40); RED CELL DISTRIBUTION WIDTH 14.7 % (11.6-13.7); WHITE BLOOD COUNT (AUTO) 10.1 K/uL (4.8-10.8)
--- NOTE | 2022-06-24 07:17 | NUR ---
RECEIVED BEDSIDE REPORT FROM NIGHTSHIFT NURSE. PT IS AWAKE IN BED, NO SIGNS OF DISTRESS. PT IS AOX0, WON'T SPEAK, BUT WILL SHRUG SHOULDERS AND NOD HEAD. ON RM AIR, IV TO RAC 24G CLEAN AND INTACT. NO FURTHER NEEDS ARE TO BE MET AT THIS TIME, WILL CONTINUE WITH CARE. BED IN LOWEST POSITION, 2 SIDE RAILS UP, CALL LIGHT PLACED WITHIN REACH. REORIENTED PT TO CALL LIGHT.
[2022-06-24 07:27] LABS: ANION GAP 20.2 (8-16); POTASSIUM 4.2 mmol/L (3.5-5.1)
[2022-06-24 07:29] LABS: CREATININE 8.6 mg/dL (0.6-1.3)
[2022-06-24 07:30] LABS: MAGNESIUM 2.2 mg/dL (1.8-2.4); PHOSPHORUS 7.7 mg/dL (2.5-4.9)
[2022-06-24 08:00] VITALS: BP 137/52
[2022-06-24] MEDS: CALCIUM ACETATE 667 MG TAB PO SCH ×3 (08:00→18:52)
[2022-06-24] MEDS: TIMOLOL OP 0.25% 5 ML BTL OP SCH ×2 (09:00→20:32)
[2022-06-24] MEDS: DORZOLAMIDE 2% OP 10 ML BTL OP SCH ×2 (09:00→20:32)
[2022-06-24] MEDS: BRIMONIDINE TARTRATE 0.2% OP 5 ML BTL OP SCH ×2 (09:00→20:35)
[2022-06-24] MEDS: ATORVASTATIN 80 MG TAB PO SCH (09:26)
[2022-06-24] MEDS: carvediloL 12.5 MG TAB PO SCH ×2 (09:27→20:55)
[2022-06-24] MEDS: ASPIRIN 81 MG TAB.CHEW PO SCH (09:27)
[2022-06-24] MEDS: VITAMIN D 400 IU TAB PO SCH (09:27)
[2022-06-24] MEDS: VIT-B COMP/VIT-C/FOLIC ACID 1 TAB PO SCH (09:27)
[2022-06-24] MEDS: amLODIPine 5 MG TAB PO SCH (09:27)
[2022-06-24] MEDS: FUROSEMIDE 40 MG TAB PO SCH ×2 (09:27→18:53)
--- NOTE | 2022-06-24 09:30 | NUR ---
PT SPEAKING NOW. AOX4 BUT WILL TALK TO SELF, HX OF SCHIZOPHRENIA. PT 0900 MEDS HELD DUE TO DIALYSIS. PT WITH DIALYSIS NURSE AT BEDSIDE. BP MEDS HELD, PT REPORTS WANTING REST OF MEDS AFTER DIALYSIS.
[2022-06-24] MEDS: INSULIN LANTUS 100 UNITS/ML 10 ML VIAL SUBQ SCH (09:41)
--- NOTE | 2022-06-24 14:00 | NUR ---
PT DONE WITH DIALYSIS @1300, 3L OUT. VS STABLE, TEMP: 99.5 BP:125/77. PT MEDS ADMINISTERED.
[2022-06-24 16:00] VITALS: BP 93/51
--- NOTE | 2022-06-24 16:45 | NUR ---
PT WITH DR. SEGOVIA AT BEDSIDE (VIA ZOOM) FOR PSYCH CONSULT.
--- NOTE | 2022-06-24 19:15 | NUR ---
RECEIVED REPORT FROM DAY SHIFT RN FOR CONTINUITY OF CARE. PT IS RESTING IN BED NOT IN ANY DISTRESS. PT IS ABLE TO FOLLOW COMMANDS. PT IS SPEAKING TO HERSELF. NOT ANSWERING QUESTIONS. SAFETY MEASURES TAKEN. POC DISCUSSED. WILL CONTINUE TO MONITOR THE PT.
[2022-06-24] MEDS: QUEtiapine FUMARATE 25 MG TAB PO SCH (20:33)
[2022-06-24] MEDS: LATANOPROST 0.005% OP 2.5 ML BTL OP SCH (20:35)
[2022-06-25] VITALS: BP 124/58
--- NOTE | 2022-06-25 00:18 | NUR ---
PT WAS CLEANED AND CHANGED. TOLERATED IT WELL.
[2022-06-25] MEDS: PIPERACILLIN/TAZOBACTAM 2.25 GM in DEXTROSE 5% 50 ML IV SCH ×3 (04:04→20:50)
--- NOTE | 2022-06-25 04:30 | NUR ---
PT WAS CLEANED AND CHANGED. TOLERATED IT WELL. PT IS HAVING CONVERSATION WITH HER SELF. STATES SHE IS TALKING TO A FRIEND. PT IS ABLE TO ANSWER QUESTIONS AND FOLLOW COMMAND.
[2022-06-25] MEDS: BLOOD GLUCOSE MONITORING 1 DEV DEV FS SCH ×4 (06:35→21:27)
--- NOTE | 2022-06-25 07:03 | NUR ---
ENDORSED PT TO DAY SHIFT RN FOR CONTINUITY OF CARE. PT IS STABLE.
--- NOTE | 2022-06-25 07:05 | NUR ---
RECEIVED REPORT FROM NIGHTSHIFT NURSE. PT IS STABLE, AWAKE IN BED, NO SIGNS OF DISTRESS. WILL CONTINUE WITH PT CARE.
[2022-06-25 08:00] VITALS: BP 107/17
[2022-06-25] MEDS: SEVELAMER CARBONATE 800 MG TAB PO SCH ×3 (08:16→18:15)
[2022-06-25] MEDS: CALCIUM ACETATE 667 MG TAB PO SCH ×3 (08:16→18:14)
[2022-06-25] MEDS: INSULIN LANTUS 100 UNITS/ML 10 ML VIAL SUBQ SCH (09:00)
[2022-06-25] MEDS: amLODIPine 5 MG TAB PO SCH (09:00)
[2022-06-25] MEDS: TIMOLOL OP 0.25% 5 ML BTL OP SCH ×2 (09:12→21:00)
[2022-06-25] MEDS: DORZOLAMIDE 2% OP 10 ML BTL OP SCH ×2 (09:14→21:00)
[2022-06-25] MEDS: BRIMONIDINE TARTRATE 0.2% OP 5 ML BTL OP SCH ×2 (09:14→21:00)
[2022-06-25] MEDS: ASPIRIN 81 MG TAB.CHEW PO SCH (09:15)
[2022-06-25] MEDS: FUROSEMIDE 40 MG TAB PO SCH ×2 (09:15→18:14)
[2022-06-25] MEDS: ATORVASTATIN 80 MG TAB PO SCH (09:15)
[2022-06-25] MEDS: VIT-B COMP/VIT-C/FOLIC ACID 1 TAB PO SCH (09:15)
[2022-06-25] MEDS: VITAMIN D 400 IU TAB PO SCH (09:15)
[2022-06-25] MEDS: carvediloL 12.5 MG TAB PO SCH ×2 (09:15→21:00)
[2022-06-25] MEDS: INSULIN LISPRO SLIDING SCALE 100 UNITS/ML VIAL SUBQ PRN ×3 (10:32→17:47)
--- NOTE | 2022-06-25 13:00 | NUR ---
PT BLOOD GLUCOSE HIGH, COVERED WITH INSULIN.
[2022-06-25 16:00] VITALS: BP 112/26
--- NOTE | 2022-06-25 19:00 | NUR ---
ENDORSED PT TO NIGHTSHIFT NURSE FOR CONTINUITY OF CARE. PT STABLE, NO SIGNS OF DISTRESS, NO REPORTS OF PAIN. BED IN LOWEST POSITION, SIDE RAILS UP, CALL LIGHT WITHIN REACH.
--- NOTE | 2022-06-25 19:30 | NUR ---
RECEIVED REPORT FROM DAY SHIFT NURSE FOR CONTINUITY OF CARE. PT AWAKE AT THIS TIME. PT IS ALERT AND ORIENTED BUT APPEARS TO BE HALLUCINATING/TALKING TO HERSELF, PT DOES HAVE A HISTORY OF SCHIZOPHRENIA. CURRENTLY ON ROOM AIR WITH NO SIGNS OF DISTRESS NOTED. IV SITE AT RIGHT AC 24 GAUGE. PT HAS LEFT AV SHUNT, AND RIGHT UPPER PERMACATH. NO REPORTS OF PAIN AT THIS TIME. PT IS BEDBOUND AND CONTINENT. WILL MONITOR FREQUENTLY THROUGHOUT SHIFT.
--- NOTE | 2022-06-25 19:31 | NUR ---
Patient's Plan of Care was discussed and reviewed with ABDIFATAH: TASIA
[2022-06-25] MEDS: LATANOPROST 0.005% OP 2.5 ML BTL OP SCH (21:00)
[2022-06-25] MEDS: QUEtiapine FUMARATE 25 MG TAB PO SCH (21:00)
--- NOTE | 2022-06-25 21:30 | NUR ---
PT REFUSED ALL SCHEDULED MEDICATIONS. LAST BG CHECK = 174, PT REFUSED HUMALOG ADMINISTRATION. PT IS AGITATED AND STATING SHE DOES NOT NEED ANY MEDICATIONS. EXPLAINED TO PT THE RISKS, BENEFITS, AND NECESSITY OF SCHEDULED MEDICATION ADMINISTRATION, BUT PT STILL REFUSED. WILL FURTHER CLOSELY MONITOR PT THROUGHOUT SHIFT.
--- NOTE | 2022-06-26 00:02 | NUR ---
PT IS REFUSING 0000 VITAL SIGNS. WHEN ATTEMPTING TO REORIENT AND EDUCATE THE PT, PT STATED, "I DO NOT WANT TO BE TOUCHED, I DON'T NEED IT". WILL CONTINUE CLOSELY MONITORING.
--- NOTE | 2022-06-26 02:03 | NUR ---
PT REMAINS AWAKE AND AGITATED. STILL TALKING TO HERSELF. WHEN ATTEMPTING TO SEE IF THE PT NEEDED TO BE CHANGED, PT YELLED NOT TO TOUCH. PT CLAIMS HER IS HERE TO TAKE HER HOME. WILL CONTINUE CLOSELY MONITORING THE PT.
--- NOTE | 2022-06-26 04:16 | NUR ---
PT VERY CONFUSED. APPEARS TO BECOME MORE AGITATED WHEN I ENTER HER ROOM. PT HAS REFUSED ALL MEDICATIONS AND VITAL SIGN CHECKS. PT CONTACTED POLICE STATING TO THEM, "THEY ARE INJECTING SOMETHING INTO MY VEINS". NO MEDICATION HAS BEEN ADMINISTERED SHE HAS REFUSED EVERYTHING. POLICE DEPARTMENT SHOWED UP TO TALK TO THE PT. PT HAS SINCE BECOME MORE RELAXED BUT PD STATED IF SHE CONTACTS THEM AGAIN, THEY WILL HAVE TO PUT THE PT ON A HOLD.
[2022-06-26] MEDS: BLOOD GLUCOSE MONITORING 1 DEV DEV FS SCH ×2 (06:35→11:53)
--- NOTE | 2022-06-26 06:36 | NUR ---
PT REMOVED IV SITE AND REFUSED MORNING BLOOD SUGAR CHECK. EDUCATED THE PT ON THE IMPORTANCE OF CHECKING HER BLOOD SUGAR AND INSERTING A NEW IV. PT STILL REFUSING, STATING SHE DOES NOT WANT TO BE TOUCHED. WILL ENDORSE TO DAY SHIFT NURSE.
--- NOTE | 2022-06-26 07:00 | NUR ---
RECEIVED BEDSIDE REPORT FROM NIGHTSHIFT NURSE. PT IS AWAKE IN BED. PT SHOWS SIGNS OF AGITATION, ATTEMPTED TO CALM. ATTEMPT IS EFFECTIVE. FURTHER PROVIDED COMFORT MEASURES, WILL REASSESS. NO IV, PT PULLED OUT, WILL TRY TO REINSERT IV. BED IN LOWEST POSITION, SIDE RAILS UP, CALL LIGHT WITHIN REACH. WILL CONTINUE WITH CARE.
[2022-06-26] MEDS: CALCIUM ACETATE 667 MG TAB PO SCH ×2 (08:00→12:00)
[2022-06-26] MEDS: SEVELAMER CARBONATE 800 MG TAB PO SCH ×2 (08:00→12:00)
[2022-06-26] MEDS: INSULIN LANTUS 100 UNITS/ML 10 ML VIAL SUBQ SCH (09:00)
[2022-06-26] MEDS: VIT-B COMP/VIT-C/FOLIC ACID 1 TAB PO SCH (09:00)
[2022-06-26] MEDS: TIMOLOL OP 0.25% 5 ML BTL OP SCH (09:00)
[2022-06-26] MEDS: carvediloL 12.5 MG TAB PO SCH (09:00)
[2022-06-26] MEDS: ATORVASTATIN 80 MG TAB PO SCH (09:00)
[2022-06-26] MEDS: FUROSEMIDE 40 MG TAB PO SCH (09:00)
[2022-06-26] MEDS: BRIMONIDINE TARTRATE 0.2% OP 5 ML BTL OP SCH (09:00)
[2022-06-26] MEDS: DORZOLAMIDE 2% OP 10 ML BTL OP SCH (09:00)
[2022-06-26] MEDS: VITAMIN D 400 IU TAB PO SCH (09:00)
[2022-06-26] MEDS: ASPIRIN 81 MG TAB.CHEW PO SCH (09:00)
--- NOTE | 2022-06-26 09:00 | NUR ---
PT REFUSING ALL ASSESSMENTS, VITALS AND MEDICATIONS. EDUCATION OF RISKS/BENEFITS WERE PROVIDED, PT STILL REFUSE. PT CURSING AND THREATENING NURSE. ATTEMPTED TO CALM PT, ATTEMPT INEFFECTIVE. PT DUE FOR DIALYSIS, REFUSED DIALYSIS. INFORMED.
--- NOTE | 2022-06-26 15:44 | NUR ---
TRANSPORTATION SET UP WITH [email or web address] WITH A 1800 PUBLIC DEFENDER TIME. NURSE BENSON AND MOTHER MARY AWARE OF THE ABOVE INFORMATION.
--- NOTE | 2022-06-26 15:50 | NUR ---
PT INFORMED OF DISCHARGE, PT UNDERSTAND DISCHARGE ORDER AND VERBALIZED UNDERSTANDING.
[2022-06-26 17:31] VITALS: BP 112/26
--- NOTE | 2022-06-26 19:00 | NUR ---
PT TRANSPORT VEHICLE ARRIVED. PT DOES NOT WANT TO BE TOUCHED OR HELPED INTO WHEELCHAIR. PT CURSING AT AND THREATENING STAFF. PT REQUESTS ONLY WANTING FAMILY. FAMILY WAS CALLED MULTIPLE TIMES, NO ANSWER. LEFT MESSAGE FOR FAMILY. PT INFORMED OF FAMILY NOT BEING PRESENT. STAFF WAS ABLE TO GET PT INTO WHEELCHAIR AND TO TRANSPORT VEHICLE. PT LEFT HOSPITAL VIA WHEELCHAIR IN TRANSPORT VEHICLE AT 1820.
== END 2022-06-26 18:20 | disposition home or self-care (01) | DRG 425 ==
LOC: MED 17:56 → MTU 06-19 02:31
PROC: 5A1D70Z Performance of Urinary Filtration, Intermittent, Less than 6 Hours Per Day (ICD-10-PCS; 2022-06-19)
PROC: 0JPV3XZ Removal of Tunneled Vascular Access Device from Upper Extremity Subcutaneous Tissue and Fascia, Percutaneous Approach (ICD-10-PCS; principal; 2022-06-20)
PROC: 02PYX3Z Removal of Infusion Device from Great Vessel, External Approach (ICD-10-PCS; 2022-06-20)
PROC: 5A1D70Z Performance of Urinary Filtration, Intermittent, Less than 6 Hours Per Day (ICD-10-PCS; 2022-06-21)
PROC: 5A1D70Z Performance of Urinary Filtration, Intermittent, Less than 6 Hours Per Day (ICD-10-PCS; 2022-06-22)
PROC: 5A1D70Z Performance of Urinary Filtration, Intermittent, Less than 6 Hours Per Day (ICD-10-PCS; 2022-06-23)
PROC: 5A1D70Z Performance of Urinary Filtration, Intermittent, Less than 6 Hours Per Day (ICD-10-PCS; 2022-06-26)
DX: E87.5 Hyperkalemia (principal); N17.0 Acute kidney failure with tubular necrosis; I50.43 Acute on chronic combined systolic (congestive) and diastolic (congestive) heart failure; E44.0 Moderate protein-calorie malnutrition; N18.6 End stage renal disease; D63.1 Anemia in chronic kidney disease; E83.39 Other disorders of phosphorus metabolism; I13.2 Hypertensive heart and chronic kidney disease with heart failure and with stage 5 chronic kidney disease, or end stage renal disease; Z68.42 Body mass index [BMI] 45.0-49.9, adult; E11.22 Type 2 diabetes mellitus with diabetic chronic kidney disease; E66.9 Obesity, unspecified; F20.9 Schizophrenia, unspecified; F99 Mental disorder, not otherwise specified; Z20.822 Contact with and (suspected) exposure to COVID-19; Z79.82 Long term (current) use of aspirin; Z79.899 Other long term (current) drug therapy; Z79.4 Long term (current) use of insulin
CPT/HCPCS: 36415; 70450; 71045; 80048; 80053; 81003; 82948; 83605; 83735; 84100; 85025; 87040; 87081; 87086; 93005; 99285; J1644; J1815; J2001; J2270; J2543; J7060; Q0092